=== PATIENT | female | born 1990 | race African-American/Black ===

== ENCOUNTER 2018-07-10 22:51 | Emergency (ER) | payer MEDICAID, OTHER ==
[~2018-07-10] VITALS: Ht 160 cm; Wt 79.5 kg
[2018-07-10 22:59] VITALS: BP 113/55; TEMP 97.8
[2018-07-10 23:51] LABS: COLLECTION METHOD CLEAN CATCH
[2018-07-11 00:17] LABS: MUCOUS Present /lpf; PH 5 (5-8); URINE APPEARANCE Cloudy; URINE BACTERIA Occasional /hpf; URINE BILIRUBIN Negative (NEGATIVE); URINE BLOOD Negative (NEGATIVE); URINE COLOR Amber; URINE GLUCOSE Negative (NEGATIVE); URINE KETONE Negative (NEGATIVE); URINE LEUKOCYTE ESTERASE 2+ (NEGATIVE); URINE NITRATE Negative (NEGATIVE); URINE PROTEIN(semi-quant) 1+ (NEGATIVE); URINE UROBILINOGEN >=4.0 mg/dL (NEGATIVE)
[2018-07-11] MEDS ORDERED: FLAGYL500 MG PO (01:00)
[2018-07-11] MEDS ORDERED: MACROBID 1100 MG/CAP PO (01:00)
[2018-07-11 01:20] VITALS: PULSE 62
== END 2018-07-11 01:20 | disposition home or self-care (01) ==
LOC: COL.ER 22:51
PROVIDERS: Nurse Practitioner
DX: O23.92 Unspecified genitourinary tract infection in pregnancy, second trimester (principal); Z88.0 Allergy status to penicillin; Z3A.15 15 weeks gestation of pregnancy

== ENCOUNTER 2018-11-22 14:47 | Outpatient (CLI) | payer OTHER, MEDICAID ==
[~2018-11-22 14:47] MED LIST: FLAGYL500 MG PO; MACROBID 1100 MG/CAP PO
--- NOTE | 2018-11-22 14:50 | NUR ---
Pt here from ER with c/o contractions, back pain and peliv pressure. Pt to [facility], explained. Pt with no care with this . Hx obtained, L7 and states she has delivered all from 31-37 weeks. Denies having any previous complications and did receive care with those. States she could not get her [facility] card to receive insurance. Pt with headache for the past 2 weeks, states baby has been active and denies any vaginal bleeding or leaking of fluid. Pt was here in ER with s/s of UTI on 07/11/18 and had US that states EDC is December 23 which makes pt 35.4 weeks gestation. Pt states she is A+ and received a tdap and flu vaccine in aug 2018. Assessment complete. SVE: 11/23/3, cervix firm and posterior. Water given to patient and encouraged to po hydrate. 1516:Dr Lennon called and notified. OB panel, GBS swab, UDS, and US ordered. Physician monitoring FHR at home. Contractions are irregular and late deceleration at 1517 while on phone with physician. Will continue to monitor.
[2018-11-22 14:56] VITALS: BP 125/68; PULSE 101; TEMP 98.4
[2018-11-22] MEDS ORDERED: PRENATAL (15:07)
[2018-11-22] MEDS ORDERED: TYLENOL 500MG500 MG PO (15:07)
--- NOTE | 2018-11-22 15:21 | NUR ---
Radiology called to notify tech of US ordered. Will call US tech in at this time.
[2018-11-22 15:43] LABS: BASO % 0.2 % (0.0-2.0); EOS % 0.5 % (0-4.0); GRAN # 4.5 (1.4-6.5); GRAN % 68.8 % (42.2-75.2); LYMPH # 1.3 (1.2-3.4); LYMPH % 20.6 % (20.0-51.0); MEAN CELL VOLUME 80 fl (80.0-100.0); MEAN CORPUSCULAR HGB CONC 32 g/dl (33.0-37.0); MEAN PLATELET VOLUME 10.1 fl (7.4-10.4); MONO # 0.6 (0.1-0.6); MONO % 9.3 % (1.7-9.3); PLATELET COUNT 232 K/mm3 (130-400); RED BLOOD COUNT 3.82 M/mm3 (4.10-5.30); REDCELL DISTRIBUTION WIDTH-CV 14.4 % (11.5-14.5)
--- NOTE | 2018-11-22 15:45 | NUR ---
Lab here and blood drawn. Urine sample and GBS swab obtained.
[2018-11-22 15:50] VITALS: BP 109/58; PULSE 82
[2018-11-22 15:52] LABS: COLLECTION METHOD CATHETER
[2018-11-22 15:56] LABS: HEMATOCRIT 30.7 % (37.0-47.0); HEMOGLOBIN 9.7 g/dl (12.5-16.0); MEAN CORPUSCULAR HEMOGLOBIN 25 pg (27.0-31.0)
[2018-11-22 16:04] LABS: MUCOUS Present /lpf; PH 6 (5-8); SQUAMOUS EPITHELIAL 0-2 /hpf; URINE APPEARANCE Hazy; URINE BACTERIA Rare /hpf; URINE BILIRUBIN Negative (NEGATIVE); URINE BLOOD 1+ (NEGATIVE); URINE COLOR Yellow; URINE GLUCOSE Negative (NEGATIVE); URINE KETONE Negative (NEGATIVE); URINE LEUKOCYTE ESTERASE Negative (NEGATIVE); URINE NITRATE Positive (NEGATIVE); URINE PROTEIN(semi-quant) Negative (NEGATIVE)
[2018-11-22 16:09] LABS: TRICYCLIC ANTIDEPRESS URINE NEGATIVE
--- NOTE | 2018-11-22 16:12 | NUR ---
US tech here and pt taken off [facility] for portable ultrasound. 1654:Still obtaining US findings, FHR doppler, 136bpm.
[2018-11-22 16:32] LABS: HIV 1/2 Antibodies Non-Reactive; HIV-1p24 Antigen Non-Reactive
--- NOTE | 2018-11-22 17:25 | NUR ---
Dr Lennon called and updated on pt labs and physician reviewing sonogram at this time. With results of sono dates and earlier ER admission dates, pt is 34.1 weeks gestation. Physician evaluating FHR at this time and after 20 minutes of EFM, pt may DC home and encourage to get care and follow up with the [facility]. FHR reactive and intermittent contractions noted. Pt complaining of sciatica pain. 1745:DC instructions given, pt verbalizes understanding. No further questions. Pt encouraged to po hydrate and return to hospital if any vaginal bleeding, leaking of fluid, decreased movement or contractions every 5-7minutes.
[2018-11-22 17:40] VITALS: BP 101/58; PULSE 92
--- NOTE | 2018-11-22 17:55 | NUR ---
To personal vehicle
[2018-11-23 13:13] LABS: HEPATITIS B SURFACE ANTIGEN Negative (Negative)
== END 2018-11-22 17:55 | disposition home or self-care (01) ==
LOC: LDRO 14:47
PROVIDERS: Obstetrics & Gynecology
DX: O62.9 Abnormality of forces of labor, unspecified (principal); Z3A.35 35 weeks gestation of pregnancy

== ENCOUNTER 2018-11-25 14:12 | Inpatient (IN) | payer OTHER, MEDICAID ==
[2018-11-25] VITALS (30 sets, daily range): BP systolic 105–140; BP diastolic 55–86; PULSE 70–98; TEMP 97.6–98.4
[~2018-11-25] VITALS: Ht 160 cm; Wt 79.5 kg
[~2018-11-25 14:12] MED LIST changes: +PRENATAL; +TYLENOL 500MG500 MG PO
--- NOTE | 2018-11-25 15:03 | NUR ---
1430 PATIENT HERE FOR COMPLAINTS OF GUSH OF FLUID AT AROUND 1400. NO CONTRACTIONS FELT BY PATIENT. EFM ON FHT 150 BABY VERY ACTIVE AT THIS TIEM. NO CONTRACTIONS ON MONITOR, LARGE AMOUNT OF CLEAR FLUID NOTED. AMNIOTRACE POSITIVE. ASSESSMENT COMPLETED. DR TONY CALLED AND UPDATED.ORDERS TO ADMIT FOR LABOR.
[2018-11-25 15:41] LABS: BASO % 0.3 % (0.0-2.0); EOS # 0.1 (0.0-0.7); EOS % 0.9 % (0-4.0); GRAN # 4.5 (1.4-6.5); GRAN % 68.5 % (42.2-75.2); LYMPH # 1.3 (1.2-3.4); LYMPH % 19.4 % (20.0-51.0); MEAN CELL VOLUME 79 fl (80.0-100.0); MEAN CORPUSCULAR HGB CONC 32 g/dl (33.0-37.0); MEAN PLATELET VOLUME 9.7 fl (7.4-10.4); MONO # 0.7 (0.1-0.6); MONO % 10.1 % (1.7-9.3); PLATELET COUNT 249 K/mm3 (130-400); REDCELL DISTRIBUTION WIDTH-CV 14.9 % (11.5-14.5)
[2018-11-25 15:46] LABS: HEMATOCRIT 30.8 % (37.0-47.0); HEMOGLOBIN 9.8 g/dl (12.5-16.0); MEAN CORPUSCULAR HEMOGLOBIN 25 pg (27.0-31.0)
--- NOTE | 2018-11-25 17:09 | NUR ---
1710 DR TONY AT BEDSIDE. SONO FOR PRESENTING PART. BABY VERTEX.
--- NOTE | 2018-11-25 23:00 | NUR ---
1800- Bedside report from ROJELIO Allen. 1809- at bedside asking patient verbal H&P information due to no care. 1814- SVE 50/-3 by . 1929- SVE //-3 by ROJELIO Keating. on unit and updated. Orders to start Pitocin. Pitocin initiated at 2mU per protocol. 2029- Patient is complaining of increased pain with contractions and pelvic pressure. SVE 50/-3 and unchanged from previous SVE. 2114- Deep variable decels, decreasing into the 70's noted on FHT strip and recover within 10-30 seconds. on unit and reviews strip. Patient repositioned LL. Patient is requesting an epidural at this time. 2119- SVE 4/50/-3 and unchanged from previous SVE. 2144- Patient sitting up on side of bed for epidural placement. 2149- VANE Holland at bedside. 2155- Single Shot. See Anesthesia Record. 2229- Bianchi catheter inserted. Cloudy, yellow urine noted. SVE 4-5// by this RN. Patient repositioned RL. 223- EFM and TOCO on and tracing intermittently due to maternal position. Patient repositioned LL. Patient denies feeling contractions. TOCO unable to trace contractions. No contractions felt by palpation.
[2018-11-26] VITALS (9 sets, daily range): BP systolic 113–128; BP diastolic 55–71; PULSE 66–83; TEMP 97.7–98
--- NOTE | 2018-11-26 01:00 | NUR ---
2330- Recurrent decels noted on FHT strip. Patient repositioned RL to LL and back and forth. IV bolus given. 2345- SVE /-2 by this RN. 0000- Recurrent decels continue to be noted on FHT strip. SVE Complete/-1. called for delivery. 0015- Bianchi catheter removed. 0026- of viable baby boy. Cord clamped and cut. Cord blood obtained. Pitocin off. [place] to warmer. NB care assumed by ROJELIO Khanna. Fundus massaged to firm by . 0030- Spontaneous delivery of placenta. Pitocin infusing at 333 ml/hr. Perineum intact. Pericare provided.
[2018-11-27 10:55] LABS: HEMATOCRIT 29.9 % (37.0-47.0); HEMOGLOBIN 9.5 g/dl (12.5-16.0)
[2018-11-27 11:00] LABS: HEMATOCRIT 31.6 % (37.0-47.0); HEMOGLOBIN 10.1 g/dl (12.5-16.0)
--- NOTE | 2018-11-27 15:37 | NUR ---
KUN and KUN student met with the patient for a social service consult, due to concerns with the patient and baby not having any care. The patient reports that she lives in [place] with five of her children. She states that she has eight children. Her children are 18, 14, 12, 11, 8, 6, and 1. She reports that her hyqgqtlx-ywgw-ukr does not live at her house anymore, but helps watch the other children. She states that her tsympxut-rnbh-tfp is watching the children while she is here at the hospital. She reports her scorfe-hhsy-okj lives with his dad in [place]. The patient reports that she was working at a [employer] at [employer] and went on leave when she started having sciatic nerve pain. She reports that she will need to talk to her boss at [employer] about her returning back to work there after maternity leave. She states the reason she did not receive care was because she was struggling to get on Medicaid. She reports that she was then finally approved, but then her sciatic nerve pain returned and she had to go to [facility]'s Emergency Department on Friday, 11/22. The emergency department then referred her to the [facility] in [place] and she had an appointment there on Friday, 11/25. She reports that while at the [facility], her water broke. The patient states that the baby's father is not involved. She had a new female partner. She reports that along with her job at [employer], she was receiving income from social security. The patient reports that she has a carseat, food stamps, and plans to go to the [facility] office upon discharge. She states she has all supplies needed. KUN did provide the patient with a resource packet for [facility]. The patient and baby's urine drug screens were both negative. The patient and baby plan return home with the rest of her children upon discharge. KUN then updated the patient's nurse. KUN did make a CPS Report. CPS Intake ID#[id number]
== END 2018-11-27 17:35 | disposition home or self-care (01) | DRG 807 ==
LOC: LDRO 14:12 → LDR 14:40 → OB 14:40
PROVIDERS: ADMIT Obstetrics & Gynecology
PROC: 10E0XZZ Delivery of Products of Conception, External Approach (ICD-10-PCS; principal; 2018-11-26)
DX: O42.913 Preterm premature rupture of membranes, unspecified as to length of time between rupture and onset of labor, third trimester (principal); Z37.0 Single live birth; Z3A.36 36 weeks gestation of pregnancy; O99.02 Anemia complicating childbirth; Z88.0 Allergy status to penicillin; O26.20 Pregnancy care for patient with recurrent pregnancy loss, unspecified trimester
CPT/HCPCS: J2590; J2795; J7120

== ENCOUNTER 2021-11-04 18:33 | Outpatient (CLI) | payer MEDICAID ==
[~2021-11-04] VITALS: Ht 160 cm; Wt 95.5 kg
[2021-11-04 19:00] VITALS: BP 124/71; PULSE 98; TEMP 98; TEMP 98.9
[2021-11-04 20:00] VITALS: BP 124/72; PULSE 86
[2021-11-04 20:42] LABS: COLLECTION METHOD CLEAN CATCH
[2021-11-04 20:54] LABS: MUCOUS Present (NOT PRESENT); PH 6 (5-8); SQUAMOUS EPITHELIAL 0-2 /hpf (0-10); URINE APPEARANCE Hazy (CLEAR/HAZY); URINE BACTERIA None Seen /hpf (NONE SEEN); URINE BILIRUBIN Negative (NEGATIVE); URINE BLOOD Negative (NEGATIVE); URINE COLOR Yellow (YELLOW); URINE GLUCOSE Negative (NEGATIVE); URINE KETONE 1+ (NEGATIVE); URINE LEUKOCYTE ESTERASE Negative (NEGATIVE); URINE NITRATE Negative (NEGATIVE); URINE PROTEIN(semi-quant) Negative (NEGATIVE); URINE RBC 0-2 /hpf (0-2)
[2021-11-04 21:15] VITALS: BP 116/69; PULSE 79
--- NOTE | 2021-11-04 21:53 | NUR ---
1842- 31 YEAR OLD, , 28.3 WGA, ARRIVES TO OB UNIT, AMBULATORY, ACCOMPANIED BY SIG. OTHER, JUSTUS. ESCORTED TO ROOM LR 4. PT C/O ABDOMINAL PAIN THAT STARTED AROUND 172. +FM, -LOF, -VB, +CTX. PT REPORTS SHE HAS NOT HAD MUCH WATER TODAY AND VOMITED TWICE TODAY. DENIES ANY N/V AT THIS TIME. 1899- VSS. PT RATES PAIN 9/10. 1919- DR. GARCIA CALLED. 1924- SVE: FINGERTIP 1937- TYLENOL 1000 MG PO, BENADRYL 50 MG PO GIVEN 1947- #18G LT AC X1 ATTEMPT, SUCCESSFUL. LABS DRAWN WITH IV START. IV BOLUS INFUSING. PT TOLERATED WELL. IV STARTED BY THIS RN. 1999- PT STILL RATING PAIN 9/10 AND CTX STILL FEEL THE SAME. BOLUS STILL INFUSING. 2016-IV BOLUS #1 COMPLETED. SALINE LOCK. 2026- DR. GARCIA CALLED. 2029- UP TO BR. 2034- IV BOLUS #2 INFUSING. UA COLLECTED AND SENT DOWN TO LAB. 2099- PT RATES PAIN 7/10 AND REPORTS FEELING BETTER. 2104- DR. GARCIA CALLED. 2109- IV BOLUS #2 COMPLETED. IV DC'D. 2119- DISCHARGE INSTRUCTIONS REVIEWED WITH PT AND SIG. OTHER. PT VERBALIZES UNDERSTANDING. 2122- AMBULATES OFF UNIT. ACCOMPANIED BY SIG. OTHER. DC'D HOME.
== END 2021-11-04 21:23 | disposition home or self-care (01) ==
LOC: LDRO 18:33
PROVIDERS: Obstetrics & Gynecology
DX: O26.899 Other specified pregnancy related conditions, unspecified trimester (principal); R10.9 Unspecified abdominal pain; Z3A.00 Weeks of gestation of pregnancy not specified
CPT/HCPCS: J7120

== ENCOUNTER 2021-12-17 17:19 | Outpatient (CLI) | payer MEDICAID ==
[~2021-12-17] VITALS: Ht 160 cm; Wt 96.4 kg
[~2021-12-17 17:19] MED LIST changes: +TYLENOL 325MG325 MG PO
--- NOTE | 2021-12-17 17:30 | NUR ---
Patient ambulatory to LR5 with spouse, changed into gown, FHR/TOCO monitors placed. Patient has complaints of contractions since 1200 today and decreased movement in the last two hours. Denies any leaking of fluid or vaginal bleeding. Plan of care discussed. 1745: SVE-2/-3 1750: IV started in left hand, blood obtained and on monitor if needed, LR infusing.
[2021-12-17] MEDS ORDERED: ZOFRAN 4MG T4 MG/TAB PO (17:57)
[2021-12-17 18:00] VITALS: BP 128/84; PULSE 115; TEMP 98.8
[2021-12-17 18:30] VITALS: BP 142/80; PULSE 64
[2021-12-17 19:00] VITALS: BP 151/93; PULSE 57
[2021-12-17 19:30] VITALS: BP 141/72; PULSE 63
[2021-12-17 20:00] VITALS: BP 119/74; PULSE 68
[2021-12-17 20:32] VITALS: BP 167/83; PULSE 58
== END 2021-12-17 20:45 | disposition home or self-care (01) ==
LOC: LDRO 17:19
DX: Z34.90 Encounter for supervision of normal pregnancy, unspecified, unspecified trimester (principal); Z3A.00 Weeks of gestation of pregnancy not specified
CPT/HCPCS: J7120

== ENCOUNTER 2021-12-20 01:31 | Inpatient (IN) | payer MEDICAID ==
[2021-12-20] VITALS (60 sets, daily range): BP systolic 114–204; BP diastolic 60–118; PULSE 69–99; TEMP 86–98.8
[~2021-12-20] VITALS: Ht 154.9 cm; Wt 96.7 kg
[~2021-12-20 01:31] MED LIST changes: +ZOFRAN 4MG T4 MG/TAB PO
[2021-12-20 01:56] LABS: HEMOGLOBIN 11.6 g/dl (12.5-16.0); MEAN CELL VOLUME 78 fl (80.0-100.0); MEAN CORPUSCULAR HEMOGLOBIN 25 pg (27-31); MEAN CORPUSCULAR HGB CONC 32 g/dl (33.0-37.0); MEAN PLATELET VOLUME 10.4 fl (7.4-10.4); PLATELET COUNT 158 K/mm3 (130-400); RED BLOOD COUNT 4.57 M/mm3 (4.10-5.30); REDCELL DISTRIBUTION WIDTH-CV 14.9 % (11.5-14.5)
[2021-12-20 02:02] LABS: HEMATOCRIT 35.8 % (37.0-47.0)
--- NOTE | 2021-12-20 02:10 | NUR ---
[id number]. 35.0. Here from the CT by process technician. Clean gown on. EFM and TOCO explained and applied. Pt reports having chest pain, blurred vision, seeing spots and intermittent hearing loss. BP taken. Initial BP 197/115. Pt breathing heavy and appears to be out of breath. Plan of care explained to pt and spouse who deny any questions at this time. 0225: called and updated on pts status. See physican notification. New orders received. 0241: Labetalol 40mg administered per orders. See EMAR. 0250: at bedside and reviews FHR strip and pts VS. Orders to start magnesium protocol at this time received. 0315: Mag 4gram bolus started per protocol. 0325: Bianchi inserted without difficulties. at bedside for bedside ultrasound for fetus placement. Vertex noted. 0340: Mag 2gram/hr per procotol explained and started at this time. See EMAR. 0350: remains at nurses station and reveiws FHR strip. Orders received to give pt a 200ml bolus for FHT's prior to starting pitocin at this time. Bolus initiated. 0354: Pt yells out complaining of her "vagina burning." Cold wet wash cloth applied and pericare completed. Pt reports the cold to feel good to vagina. Ice pack applied at this time. 0405: FHR minimal vaibility with no accels or decels noted. Pt repositioned to left lateral position. 0412: called and updated on FHT's and CT results. See physican notification. Orders received to continue with starting pt on pitocin protocol. 0430: Pitocin explained and started at 2mus/hr per protocol. 0552: FHR remains minimal variablity with no accels or decels noted. Pt repostioned to right lateral position.
[2021-12-20 02:17] LABS: ALBUMIN 2.5 gm/dL (3.5-5.0); BAND 4 % (0-10); BILIRUBIN,TOTAL 0.8 mg/dL (0.2-1.2); CALCIUM 8.1 mg/dL (8.4-10.2); CREATININE, serum 0.82 mg/dL (0.57-1.11); EOSINOPHIL 1 % (0-4); LYMPHOCYTE 26 % (20.0-51.0); NEUTROPHILS 62 % (42.0-75.2); PLATELET ESTIMATE NORMAL (NORMAL); TOTAL PROTEIN 6.4 gm/dL (6.2-8.1)
[2021-12-20 02:18] LABS: MICROCYTOSIS 1+
[2021-12-20 02:24] LABS: TROPONIN-I 0.015 ng/mL (0.00-0.033)
[2021-12-20 04:26] LABS: COLLECTION METHOD CLEAN CATCH
[2021-12-20 04:46] LABS: PH 7 (5-8); SQUAMOUS EPITHELIAL None Seen /hpf (0-10); URINE APPEARANCE Clear (CLEAR/HAZY); URINE BACTERIA None Seen /hpf (NONE SEEN); URINE BILIRUBIN Negative (NEGATIVE); URINE BLOOD Negative (NEGATIVE); URINE COLOR Yellow (YELLOW); URINE GLUCOSE Negative (NEGATIVE); URINE KETONE Negative (NEGATIVE); URINE LEUKOCYTE ESTERASE Negative (NEGATIVE); URINE NITRATE Negative (NEGATIVE); URINE PROTEIN(semi-quant) 3+ (NEGATIVE); URINE RBC 0-2 /hpf (0-2); URINE UROBILINOGEN Negative (NEGATIVE)
--- NOTE | 2021-12-20 09:19 | NUR ---
0740 PT REQUESTING EPIDURAL. Royce FIELD CRNA NOTIFIED. BOLUS STARTED 0747 DR. TONY ON UNIT REVIEWING STRIP. TO BEDSIDE REVIEWING POC WITH PT AND FAMILY. [address] TONY, CLEAR FLUID. IUPC PLACED BY DR. TONY. 0803 Royce FIELD CRNA AT BEDSIDE. 0810 EPIDURAL PLACED, SEE ANESTHESIA RECORD. FHT TRACING INTERMITTENTLY, RN HOLDING AT BEDSIDE.
--- NOTE | 2021-12-20 09:45 | NUR ---
0945Early, late, and variable decels noted.
--- NOTE | 2021-12-20 10:08 | NUR ---
1008Dr. Li updated on pt. See physician notification. 1013Amnioinfusion bolus explained and started. 1022Patient reports increased rectal pressure. SVE 8/90/0. 1024Dr. Li updated. See physician notification. 1026Patient reports increased rectal pressure and strong urge to push. SVE 9.5/+1. Dr. Li notified. See physician notification. 1032Pitocin paused. 1034Dr. Guillermo to bedside for delivery. Catheter removed. Aubrie care provided. Patient repositioned in footplates. 1035SVE 10cm per Dr. Li. 1039Spontaneous vaginal delivery of viable male infant. To mother's chese where dried and stimulated by nursery RN. 1041Cord clamped x2 and cut by father of . Care of assumed by Bebo Carter RN. Cord blood/gases obtained by provider. 1044Spontaneous and intact delivery of placenta. Pitocin to 333ml/hr per protocol. Perineum intact. Fundus firm, midline, and bleeding minimal. Aubrie care provided and pads change. Plan of care and safety precautions reviwed. See doctor dictation, anesthesia record, and nurses notes.
--- NOTE | 2021-12-20 15:00 | NUR ---
1500Linens/pads changed. Aubrie care provided.
--- NOTE | 2021-12-20 20:00 | NUR ---
IV fluids : LR and MagSo4 moved to L hand site, running without redness or swelling @ site. R hand site flushed with NS, site without redness or swelling. Pt denies pain or discomfort, states "I'm just tired"
[2021-12-21] VITALS (17 sets, daily range): BP systolic 131–175; BP diastolic 72–105; PULSE 80–94; TEMP 98–99.1
--- NOTE | 2021-12-21 02:35 | NUR ---
Pt states "I want that medicine off. I'm tired, I feel weak, and I'm nauseated." Discussed with pt that we would get a lab magnesium level and call the
--- NOTE | 2021-12-21 03:15 | NUR ---
Mag level 9.1. MgSO4 turned off, line disconnected. mainline LR to 150.
[2021-12-21 04:49] LABS: MEAN CELL VOLUME 77 fl (80.0-100.0); MEAN CORPUSCULAR HGB CONC 33 g/dl (33.0-37.0); MEAN PLATELET VOLUME 11.5 fl (7.4-10.4); PLATELET COUNT 121 K/mm3 (130-400); RED BLOOD COUNT 3.86 M/mm3 (4.10-5.30); REDCELL DISTRIBUTION WIDTH-CV 15.4 % (11.5-14.5)
[2021-12-21 05:04] LABS: ALBUMIN 2.2 gm/dL (3.5-5.0); BILIRUBIN,TOTAL 0.5 mg/dL (0.2-1.2); CALCIUM 6.3 mg/dL (8.4-10.2); CREATININE, serum 0.77 mg/dL (0.57-1.11); TOTAL PROTEIN 5.7 gm/dL (6.2-8.1)
[2021-12-21 05:07] LABS: POTASSIUM 2.8 mmol/L (3.5-4.5)
[2021-12-21 05:27] LABS: HEMATOCRIT 29.8 % (37.0-47.0); HEMOGLOBIN 9.9 g/dl (12.5-16.0); MEAN CORPUSCULAR HEMOGLOBIN 26 pg (27-31)
[2021-12-21 05:31] LABS: ANISOCYTOSIS 1+; LYMPHOCYTE 19 % (20.0-51.0); NEUTROPHILS 77 % (42.0-75.2); NUCLEATED RED BLOOD CELL 2 (0-6); PLATELET ESTIMATE NORMAL (NORMAL)
--- NOTE | 2021-12-21 08:20 | NUR ---
0730 PT USED CALL LIGHT TO CALL RN TO ROOM. PT WITH LIGHTS OFF AND DAMP RAG ON FOREHEAD. PT COMPLAINS OF CHEST PAIN AT THIS TIME. NO DIFFICULTY BREATHING. PT STATES RECENTLY ATE TOAST, BITES OF CREAM OF WHEAT, SIPS OF SPRITE. BP 162/99, 82 HR. 99% RA. PT DENIES HEADACHES, REPORTS BLURRY VISION THAT STARTED WHEN MAG STARTED. NO CHANGES TO VISION SINCE MAG STOPPED. PABON OUTPUT 200 MLS SINCE LAST DOCUMENT. FUNDUS FIRM, LOCHIA WNL. WILL UPDATE DOCTOR WITH PT STATUS. 0800 PT RATES PAIN 7/10, MOTRIN GIVEN. TUMS OFFERED/GIVEN AT THIS TIME.
--- NOTE | 2021-12-21 09:08 | NUR ---
5320 DR. TONY AT BEDSIDE. NEW ORDERS TO START LABETALOL, IRON, AND POTASSIUM. PT AGREES WITH PLAN OF CARE. ORDERS TO REMOVE PABON THIS AM. PLAN TO MOVE PATIENT TO ROOM 214 LATER THIS DAY.
--- NOTE | 2021-12-21 14:51 | NUR ---
1415 PT UP TO BATHROOM TO "PEE". PT STATES SHE COULDN'T AND A LARGE CLOT CAME OUT. PT NOTIFIED RN. CLOT APPEARS THE SIZE OF TENNIS BALL. FUNDUS FIRM, DOWN 1. NO FREE FLOW WITH FUNDUS PALPATION. VSS. PT REPORTS A LITTLE DIZZY. PT LYING IN BED AT THIS TIME. PT ENCOURAGED TO TRY TO VOID AGAIN IN 30-60 MINUTES.
[2021-12-22 01:25] VITALS: BP 134/84; PULSE 82; TEMP 98
[2021-12-22 05:49] LABS: MEAN CELL VOLUME 80 fl (80.0-100.0); MEAN CORPUSCULAR HGB CONC 32 g/dl (33.0-37.0); MEAN PLATELET VOLUME 11.3 fl (7.4-10.4); PLATELET COUNT 117 K/mm3 (130-400); RED BLOOD COUNT 3.36 M/mm3 (4.10-5.30); REDCELL DISTRIBUTION WIDTH-CV 15.9 % (11.5-14.5)
[2021-12-22 05:51] LABS: HEMATOCRIT 26.8 % (37.0-47.0); HEMOGLOBIN 8.6 g/dl (12.5-16.0); MEAN CORPUSCULAR HEMOGLOBIN 26 pg (27-31)
[2021-12-22 06:00] LABS: BILIRUBIN,TOTAL 0.3 mg/dL (0.2-1.2); CALCIUM 6.8 mg/dL (8.4-10.2); CREATININE, serum 0.95 mg/dL (0.57-1.11); POTASSIUM 3.3 mmol/L (3.5-4.5); TOTAL PROTEIN 5.1 gm/dL (6.2-8.1)
[2021-12-22 06:20] LABS: TSH w REFLEX 2.348 uIU/mL (0.350-4.940)
[2021-12-22 08:30] VITALS: BP 146/82; PULSE 78; TEMP 97.8
[2021-12-22 16:30] VITALS: BP 136/90; PULSE 80; TEMP 97.4
[2021-12-22 20:25] VITALS: BP 146/93; PULSE 73; TEMP 98.1
[2021-12-23 07:09] LABS: MEAN CELL VOLUME 80 fl (80.0-100.0); MEAN CORPUSCULAR HGB CONC 32 g/dl (33.0-37.0); MEAN PLATELET VOLUME 10.7 fl (7.4-10.4); PLATELET COUNT 140 K/mm3 (130-400); RED BLOOD COUNT 3.38 M/mm3 (4.10-5.30); REDCELL DISTRIBUTION WIDTH-CV 16.3 % (11.5-14.5)
[2021-12-23 07:11] LABS: HEMATOCRIT 27.1 % (37.0-47.0); HEMOGLOBIN 8.6 g/dl (12.5-16.0); MEAN CORPUSCULAR HEMOGLOBIN 25 pg (27-31)
[2021-12-23 07:25] LABS: ALBUMIN 1.9 gm/dL (3.5-5.0); BILIRUBIN,TOTAL 0.3 mg/dL (0.2-1.2); CALCIUM 7.8 mg/dL (8.4-10.2); CREATININE, serum 0.8 mg/dL (0.57-1.11); POTASSIUM 3.8 mmol/L (3.5-4.5); TOTAL PROTEIN 5.3 gm/dL (6.2-8.1)
[2021-12-23 08:30] VITALS: BP 159/90; PULSE 66; TEMP 98.7
[2021-12-23] MEDS ORDERED: IBU600 MG PO (09:57)
[2021-12-23] MEDS ORDERED: TRANDATE 200MG200 MG PO (09:57)
[2021-12-23] MEDS ORDERED: FERROUS SU325 MG/TAB PO (09:57)
== END 2021-12-23 10:55 | disposition home or self-care (01) | DRG 807 ==
LOC: COL.ER 01:31 → LDR 01:56 → COL.ER 01:56 → LDR 01:56 → OB 12-21 15:20
PROVIDERS: Emergency Medicine; Obstetrics & Gynecology; Student in an Organized Health Care Education/Training Program; ADMIT Obstetrics & Gynecology
PROC: 10E0XZZ Delivery of Products of Conception, External Approach (ICD-10-PCS; principal; 2021-12-21)
DX: O11.5 Pre-existing hypertension with pre-eclampsia, complicating the puerperium (principal); Z37.0 Single live birth; O99.02 Anemia complicating childbirth; D64.9 Anemia, unspecified; O24.429 Gestational diabetes mellitus in childbirth, unspecified control; O99.283 Endocrine, nutritional and metabolic diseases complicating pregnancy, third trimester; E04.1 Nontoxic single thyroid nodule; E87.6 Hypokalemia; O10.92 Unspecified pre-existing hypertension complicating childbirth; Z3A.35 35 weeks gestation of pregnancy; Z88.0 Allergy status to penicillin
CPT/HCPCS: OP; J2405; J2590; J2795; J3475; J3480; J7030; J7120; Q9967

== ENCOUNTER 2022-05-13 19:07 | Emergency (ER) | payer MEDICAID ==
[~2022-05-13] VITALS: Ht 160 cm; Wt 98.6 kg
[~2022-05-13 19:07] MED LIST changes: +FERROUS SU325 MG/TAB PO; +IBU600 MG PO; +TRANDATE 200MG200 MG PO
[2022-05-13 19:21] VITALS: TEMP 98.5
[2022-05-13] MEDS ORDERED: CEPHALEXIN500 M1 PO (19:54)
[2022-05-13 20:01] VITALS: BP 146/70; PULSE 88
== END 2022-05-13 20:01 | disposition home or self-care (01) ==
LOC: COL.ER 19:07
DX: T81.40XA Infection following a procedure, unspecified, initial encounter (principal); Z90.89 Acquired absence of other organs; Z88.0 Allergy status to penicillin; Z28.310 Unvaccinated for COVID-19
CPT/HCPCS: J0696

== ENCOUNTER → 2022-05-14 | Outpatient (CLI) | payer MEDICAID ==
[~2022-05-14] MED LIST changes: +CEPHALEXIN500 M1 PO
== END ==
LOC: ZCOL.LAB 16:21
DX: T81.49XA Infection following a procedure, other surgical site, initial encounter (principal)